=== PATIENT | male | born 1990 | race Two or more races ===

== ENCOUNTER 2020-03-12 17:40 | Emergency (ER) | payer MEDICAID ==
[~2020-03-12] VITALS: Ht 172.7 cm; Wt 91.0 kg
[2020-03-12 18:04] VITALS: BP 141/80
== END 2020-03-12 21:00 | disposition left against medical advice (07) ==
LOC: ER 17:40
DX: R00.2 Palpitations (principal); Z53.21 Procedure and treatment not carried out due to patient leaving prior to being seen by health care provider